=== PATIENT | male | born 1965 | race Caucasian/White ===

== ENCOUNTER → 2017-05-27 | Outpatient (CLI) | payer OTHER ==
[~2017-05-27] MED LIST: GLIM4 PO; METF500 PO; Percocet 5-3251 EACH PO
[2017-05-27 13:59] LABS: Protein, Urine Quantitative 495.8 mg/dL (0.0-11.9)
== END ==
LOC: LAB SHORT 12:20 → OLS 12:20
PROVIDERS: Internal Medicine
DX: N18.3 Chronic kidney disease, stage 3 (moderate) (principal)
CPT/HCPCS: 81050; 84156

== ENCOUNTER 2017-06-27 08:23 | Day surgery (SDC) | payer OTHER ==
[2017-06-27 15:12] LABS: Performing Lab SYMBIODX; Test Name KIDNEY BX
== END 2017-06-27 22:36 | disposition home or self-care (01) ==
LOC: CT 08:23
PROVIDERS: Internal Medicine; Radiology Diagnostic Radiology
PROC: 0TB13ZX Excision of Left Kidney, Percutaneous Approach, Diagnostic (ICD-10-PCS; principal; 2017-06-27 10:00)
DX: I12.9 Hypertensive chronic kidney disease with stage 1 through stage 4 chronic kidney disease, or unspecified chronic kidney disease (principal); E11.22 Type 2 diabetes mellitus with diabetic chronic kidney disease; E11.21 Type 2 diabetes mellitus with diabetic nephropathy; N18.3 Chronic kidney disease, stage 3 (moderate); E11.40 Type 2 diabetes mellitus with diabetic neuropathy, unspecified; Z87.891 Personal history of nicotine dependence; D64.9 Anemia, unspecified
CPT/HCPCS: 50200; 77012; 88329

== ENCOUNTER 2018-05-17 06:02 | Day surgery (SDC) | payer OTHER ==
[~2018-05-17] VITALS: Ht 182.9 cm; Wt 95.0 kg
[~2018-05-17 06:02] MED LIST changes: +AMLO10 PO; +ATOR20 PO; +CHLORTABS4 MG PO; +CHOL10002 PO; +FURO20 PO; +Ferrous Sulfat325 M2 PO; +HYDCHL25 PO; +HYDR10 PO; +Omeprazole20 M1 PO; +TRULICITY0.75 MG/0. SC; +VELTASSA8.4 GM PO
--- NOTE | 2018-05-17 08:16 | NUR ---
AT 0800 PT ARRIVED BACK TO RECOVERY ROOM IN RECLINER. PT DENIES PAIN. LEFT IJ PERMACATH SITE SOFT NON-TENDER WITH NO HEMATOMA AND NO BLEEDING WITH INTACT DRAINSPONGE DRESSING OVER SITE. PT EATING BREAKFAST AND TALKING WITH , CALL LIGHT IN REACH.
--- NOTE | 2018-05-17 08:51 | NUR ---
DISCHARGE INSTURCTIONS REVIEWED ALL QUESTIONS ANSWERED. 22 G IV DISCONTINUED FROM LEFT HAND WITH INTACT CANNULA. PT DISCHARGED AT 0850.
== END 2018-05-17 08:50 | disposition home or self-care (01) ==
LOC: MHTC 06:02
DX: I12.0 Hypertensive chronic kidney disease with stage 5 chronic kidney disease or end stage renal disease (principal); E11.22 Type 2 diabetes mellitus with diabetic chronic kidney disease; N18.6 End stage renal disease; E78.5 Hyperlipidemia, unspecified; Z87.891 Personal history of nicotine dependence; Z79.899 Other long term (current) drug therapy; Z79.84 Long term (current) use of oral hypoglycemic drugs
CPT/HCPCS: 36558; 99152; C1750; J1644; J2250; J3010; J7030; J7040

== ENCOUNTER 2018-11-16 09:44 | Day surgery (SDC) | payer MEDICARE, OTHER ==
[~2018-11-16] VITALS: Ht 182.9 cm; Wt 94.3 kg
[~2018-11-16 09:44] MED LIST changes: +Amlodipine Besy10 MG PO; +Calcium Acetat667 MG PO; +FURO40 PO; +LOSA50 PO; +METO25ER PO
--- NOTE | 2018-11-16 11:20 | NUR ---
11/16/18 1120 Aracelis Serrano S 3 ANTIBIOTICS ORDERED FOR PT. FOR HIS COLONOSCOPY. PT. RECEIVED AMPICILLIN & GENTAMYCIN BEFORE PROCEDURE. PER DR. DIAMOND OK TO RUN FLAGYL IN AFTER PROCEDURE SINCE TAKES AN HOUR TO RUN IN. DR. NOONAN AWARE. PT. WITH PERITONEAL CATH TO ABD. ALSO PT. HAS A FISTULA ON LEFT ARM. BP CUFF ON RIGHT LEG FOR PROCEDURE.
--- NOTE | 2018-11-16 12:07 | NUR ---
11/16/[address] STARTED FLAGYL 1206. DURING COLONOSCOPY.
--- NOTE | 2018-11-16 12:41 | NUR ---
11/16/18 1241 Lincoln Goel PT TRANSFERED WELL FROM BED TO CHAIR. PT AWAKE, ALERT AND ORIENTED. FAMILY AT BEDSIDE. PT WAS BROUGHT TO STEP DOWN UNIT TO FINISH GIVING ANTIBIOTIC FLAGYL. FLAGYL WAS STARTED DURING COLONOSCOPY PROCEDURE BY ANESTHESIOLOGIST. PT SITTING ON RECLINER, DRINKING COFFEE WAITING FOR ANTIBIOTIC TO FINISH. VS WNL. WILL CONTINUE TO MONITOR. PT DENIES ANY PAIN. PT HAS PERITONEAL CATHETER PRE-PROCEDURE. CATHETER STILL INTACT AND WNL.
== END 2018-11-16 12:52 | disposition home or self-care (01) ==
LOC: ORSCSDS 09:44
PROVIDERS: Student in an Organized Health Care Education/Training Program
PROC: 0DBM8ZX Excision of Descending Colon, Via Natural or Artificial Opening Endoscopic, Diagnostic (ICD-10-PCS; principal; 2018-11-16 11:00)
PROC: 0DBL8ZX Excision of Transverse Colon, Via Natural or Artificial Opening Endoscopic, Diagnostic (ICD-10-PCS; principal; 2018-11-16 11:00)
PROC: 0DBK8ZX Excision of Ascending Colon, Via Natural or Artificial Opening Endoscopic, Diagnostic (ICD-10-PCS; principal; 2018-11-16 11:00)
PROC: 0DBN8ZX Excision of Sigmoid Colon, Via Natural or Artificial Opening Endoscopic, Diagnostic (ICD-10-PCS; principal; 2018-11-16 11:00)
DX: Z12.11 Encounter for screening for malignant neoplasm of colon (principal); D12.2 Benign neoplasm of ascending colon; D12.3 Benign neoplasm of transverse colon; D12.4 Benign neoplasm of descending colon; D12.5 Benign neoplasm of sigmoid colon; K64.8 Other hemorrhoids; I25.10 Atherosclerotic heart disease of native coronary artery without angina pectoris; I12.0 Hypertensive chronic kidney disease with stage 5 chronic kidney disease or end stage renal disease; E11.22 Type 2 diabetes mellitus with diabetic chronic kidney disease; N18.6 End stage renal disease; E78.5 Hyperlipidemia, unspecified; Z87.891 Personal history of nicotine dependence; Z79.899 Other long term (current) drug therapy
CPT/HCPCS: 82947; 88305; J0290; J1580; J2704; J7030; J7120

== ENCOUNTER 2019-02-06 09:31 | Inpatient (IN) | payer MEDICARE, OTHER ==
[~2019-02-06] VITALS: Ht 182.9 cm; Wt 96.3 kg
[~2019-02-06 09:31] MED LIST changes: -ATOR20 PO; -Amlodipine Besy10 MG PO; -CHLORTABS4 MG PO; -CHOL10002 PO; -Calcium Acetat667 MG PO; -FURO40 PO; -HYDR10 PO; -LOSA50 PO; -METO25ER PO; -Omeprazole20 M1 PO; -TRULICITY0.75 MG/0. SC
[2019-02-06 10:22] LABS: BASOPHILS ABSOLUTE AUTO 0.03 K/mm3 (0.00-0.23); BASOPHILS PERCENT AUTO 0 % (0-2); EOSINOPHILS ABSOLUTE AUTO 0.37 K/mm3 (0.00-0.68); EOSINOPHILS PERCENT AUTO 4 % (0-6); Hematocrit 24.1 % (37.0-53.0); Hemoglobin 7.7 g/dL (13.5-17.5); IMMATURE GRAN ABSOLUTE AUTO 0.03 K/mm3 (0.00-0.10); IMMATURE GRAN PERCENT AUTO 0 % (0-1); LYMPHOCYTES ABSOLUTE AUTO 1.33 K/mm3 (0.84-5.20); LYMPHOCYTES PERCENT AUTO 16 % (21-46); MONOCYTES ABSOLUTE AUTO 0.74 K/mm3 (0.16-1.47); MONOCYTES PERCENT AUTO 9 % (4-13); Mean Corpuscular HGB 31.3 pg (26.0-34.0); Mean Corpuscular Volume 98 fL (80-100); Mean Platelet Volume 10.1 fL (9.1-12.4); NEUTROPHILS ABSOLUTE AUTO 5.95 K/mm3 (1.96-9.15); NEUTROPHILS PERCENT AUTO 70 % (41-73); Platelet Count 259 K/mm3 (150-400); RDW Coefficient Variation 14.5 % (11.7-14.2); RDW Standard Deviation 51.8 fL (35.1-46.3); Red Blood Cell Count 2.46 M/mm3 (4.30-5.90); White Blood Cell Count 8.45 K/mm3 (4.00-11.30)
[2019-02-06 10:42] LABS: Albumin, Blood 2.2 g/dL (3.4-5.0); Albumin/Globulin Ratio 0.6 (0.8-1.8); Bilirubin, Total 0.3 mg/dL (0.1-1.0); Calcium, Blood 7.1 mg/dL (8.5-10.1); Globulin, Blood 3.7 g/dL (2.2-4.0); Total Protein, Blood 5.9 g/dL (6.4-8.2)
[2019-02-06 10:45] LABS: Troponin I 0.056 ng/mL (0.000-0.040)
[2019-02-06 10:49] LABS: Bun/Creatinine Ratio 6.5 (12.0-20.0); Creatinine, Blood 13.6 mg/dL (0.60-1.20)
[2019-02-06 11:54] LABS: Phosphorus, Blood 8.7 mg/dL (2.5-4.9)
[2019-02-06 12:20] LABS: Creatine Kinase MB 21.1 ng/mL (0.0-3.6); Creatine Kinase MB Index 1.7 (0.0-4.0)
[2019-02-06] MEDS ORDERED: Omeprazole20 M1 PO (12:47)
[2019-02-06] MEDS ORDERED: METO25ER PO (12:47)
[2019-02-06] MEDS ORDERED: TRULICITY0.75 MG/0. SC (12:48)
[2019-02-06] MEDS ORDERED: PARO10 PO (12:48)
[2019-02-06] MEDS ORDERED: HYDR10 PO (12:49)
[2019-02-06] MEDS ORDERED: LOSA50 PO (12:49)
[2019-02-06] MEDS ORDERED: FURO40 PO (12:49)
[2019-02-06] MEDS ORDERED: Calcium Acetat667 MG PO (12:50)
[2019-02-06] MEDS ORDERED: GLIM4 PO (12:51)
[2019-02-06] MEDS ORDERED: CALCIUM ACETAT667 M2 PO (12:51)
[2019-02-06] MEDS ORDERED: Amlodipine Besy10 MG PO (12:52)
[2019-02-06] MEDS ORDERED: ATOR20 PO (12:52)
[2019-02-06] MEDS ORDERED: Aspir 8181 MG PO (12:54)
[2019-02-06] MEDS ORDERED: CALC.25 PO (12:58)
[2019-02-06] MEDS ORDERED: CHLORTABS4 MG PO (13:11)
[2019-02-06] MEDS ORDERED: VITAMIN D325 MCG PO (13:11)
--- NOTE | 2019-02-06 16:52 | NUR ---
PT ARRIVED TO THE MEDICAL FLOOR FROM THE ER TODAY ARROUND 1300, A/OX3, PLEASANT AND COOPERATIVE, PT IS UP WITHOUT ASSISTANCE, THE PT IS MILDLY SOB WITH ACTIVITY, THE PT DENIED ANY PAIN, OR N/V, THE PT WAS ORIENTED TO THE ROOM LAYOUT AND CALL SYSTEM, THE PT IS RECIEVING HD AT THIS TIME AND IS TOLERATING WELL, THE PT ANSWERED ALL QUESTIONS APPROPRIATLY, DR. PARDO WAS IN TO SEE THE PT , PT APPEARS TO BE BREATHING EASILY AT REST, CALL LIGHT IN REACH. WILL CONTINUE TO MONITOR AND ASSESS FOR CHANGES, THE PT RECIEVED 1 UNIT PRBC WITH DIALYSIS
[2019-02-06 18:09] LABS: Adenovirus Not Detected (NOT DETECT); Bordetella pertussis Not Detected (NOT DETECT); Chlamydophila pneumoniae Not Detected (NOT DETECT); Coronavirus 229E Not Detected (NOT DETECT); Coronavirus HKU1 Not Detected (NOT DETECT); Coronavirus NL63 Not Detected (NOT DETECT); Coronavirus OC43 Not Detected (NOT DETECT); Human Metapneumovirus Not Detected (NOT DETECT); Human Rhinovirus/Enterovirus Not Detected (NOT DETECT); Influenza A Not Detected (NOT DETECT); Influenza A/2009-H1 Not Detected (NOT DETECT); Influenza A/H1 Not Detected (NOT DETECT); Influenza A/H3 Not Detected (NOT DETECT); Influenza B Not Detected (NOT DETECT); Mycoplasma pneumoniae Not Detected (NOT DETECT); Parainfluenza Virus 1 Not Detected (NOT DETECT); Parainfluenza Virus 2 Not Detected (NOT DETECT); Parainfluenza Virus 3 Not Detected (NOT DETECT); Parainfluenza Virus 4 Not Detected (NOT DETECT); Respiratory Syncytial Virus Not Detected (NOT DETECT)
--- NOTE | 2019-02-07 02:53 | NUR ---
BP elevated, notified commission sales associate earlier, orders for antihypertension obtained. Recently administered med to pt for elevated BP. Will recheck BP in 1-2 hrs for follow up. Asymptomatic. Call light in reach.
[2019-02-07 05:14] LABS: Hematocrit 25.3 % (37.0-53.0); Hemoglobin 8.1 g/dL (13.5-17.5); Mean Corpuscular HGB 30.2 pg (26.0-34.0); Mean Platelet Volume 9.8 fL (9.1-12.4); Platelet Count 233 K/mm3 (150-400); RDW Coefficient Variation 15.6 % (11.7-14.2); RDW Standard Deviation 54.2 fL (35.1-46.3); Red Blood Cell Count 2.68 M/mm3 (4.30-5.90); White Blood Cell Count 7.78 K/mm3 (4.00-11.30)
[2019-02-07 05:21] LABS: Mean Corpuscular Volume 94 fL (80-100)
[2019-02-07 05:45] LABS: Albumin, Blood 2.2 g/dL (3.4-5.0); Anion Gap 12 mmol/L (6-16); Blood Urea Nitrogen 65 mg/dL (8-24); Bun/Creatinine Ratio 5.8 (12.0-20.0); CO2, Blood 24 mmol/L (21-32); Calcium, Blood 7.3 mg/dL (8.5-10.1); Chloride, Blood 107 mmol/L (98-108); Glomerular Filtration Rate 5 (60-); Glucose, Blood 97 mg/dL (70-99); Phosphorus, Blood 7.1 mg/dL (2.5-4.9); Potassium, Blood 4.2 mmol/L (3.5-5.5); Sodium, Blood 143 mmol/L (136-145)
--- NOTE | 2019-02-07 14:35 | NUR ---
Hypertension Clarified orders for Cozaar with Dr. Turner. Pt is to resume normal dose of Cozaar (50mg) instead of the (100mg) that was changed this afternoon.
--- NOTE | 2019-02-07 14:38 | NUR ---
NG tube Tube placed and confirmed by this RN through aspiration and bubble techniques. Portable chest x ray ordered for definitive confirmation.
--- NOTE | 2019-02-07 18:24 | NUR ---
Shift Summary A/Ox4, independent and pleasant to have. Pt received HD today, blood pressure remains elevated. Medicated for BP 174/102 with Hydralazine IV, pressure is now 167/93. Order placed for another sputum sample as the previous one sent was not valid. Will keep monitoring and pass to receiving RN.
--- NOTE | 2019-02-07 18:59 | NUR ---
DIALYSIS-PD TOOK SUPPLIES TO THE PHARMACY FOR HEPARIN TO BE INSTILLED IN PD SOLUTION. TOOK SUPPLIES AND MACHINE TO THE PT'S ROOM TO CONNECT. CONNECTED PER PROTOCAL AT 1845. PT A&O. HAS BEEN DOING PD FOR 8 MOS. INFORMED THE RN ABOUT THE PD, MY PHONE, AND ANY PROBLEM COULD ARISE.
[2019-02-08 05:31] LABS: Hematocrit 27.7 % (37.0-53.0); Hemoglobin 9.2 g/dL (13.5-17.5)
[2019-02-08 05:53] LABS: Magnesium, Blood 2.1 mg/dL (1.6-2.4)
[2019-02-08 06:04] LABS: Albumin, Blood 2.2 g/dL (3.4-5.0); Anion Gap 8 mmol/L (6-16); Blood Urea Nitrogen 48 mg/dL (8-24); Bun/Creatinine Ratio 5.2 (12.0-20.0); CO2, Blood 28 mmol/L (21-32); Calcium, Blood 8.4 mg/dL (8.5-10.1); Chloride, Blood 108 mmol/L (98-108); Creatinine, Blood 9.26 mg/dL (0.60-1.20); Glomerular Filtration Rate 6 (60-); Glucose, Blood 153 mg/dL (70-99); Phosphorus, Blood 5.5 mg/dL (2.5-4.9); Potassium, Blood 4.4 mmol/L (3.5-5.5); Sodium, Blood 144 mmol/L (136-145)
--- NOTE | 2019-02-08 07:59 | NUR ---
DIALYSIS-PD TOOK SUPPLIES TO PT'S ROOM. DC'ED TX PER PROTOCAL. PT STATED THAT THE TX WAS VERY COMFORTABLE FOR HIM. ID [id number], UF [id number]. PT PLANS ON TAKING A SHOWER THIS AM. LEFT HIM WITH SUPPLIES TO CLEAN AND DRESS HIS CATH SITE.
--- NOTE | 2019-02-08 08:04 | NUR ---
SHIFT SUMMARY: PATIENT IS A&OX4, NO REPORTS OF PAIN. PATIENT IS ABLE TO MAKE NEEDS KNOW. RECIEVED PARATONEALDIALYSIS DURING THE NIGHT, TOLERATED IR WELL. INDEPENDANT IN THE ROOM, VOIDING IN THE URINAL. NO COMPLAINTS OF PAIN OR DISCOMFORT. PATIENT HAS AN AV FISTUAL IN HIS L ARM POSITIVE FOR THRILL AND BUIT.
[2019-02-08] MEDS ORDERED: DOXY100 PO (10:17)
--- NOTE | 2019-02-08 11:45 | NUR ---
1145 PT D/C'D HOME VIA PERSONAL VEHICLE ACCOMPANIED AND DRIVEN BY SON. ESCORTED TO ENTRANCE VIA W/C BY MACHINE LAY OUT WORKER. IV REMOVED. D/C PAPERWORK REVIEWED WITH PT AND COPY PROVIDED. NEW RX FAXED TO [facility] PER PT REQUEST. NO NEW CHANGES OR CONCERNS.
== END 2019-02-08 11:44 | disposition home or self-care (01) | DRG 640 ==
LOC: ER 09:31 → MEDS 11:45 → ENPENDDIS 02-08 10:00 → MEDS 02-08 11:44
PROVIDERS: Emergency Medicine; Internal Medicine Nephrology; Nurse Practitioner Acute Care; ADMIT Internal Medicine
PROC: 5A1D70Z Performance of Urinary Filtration, Intermittent, Less than 6 Hours Per Day (ICD-10-PCS; principal; 2019-02-06)
PROC: 5A1D70Z Performance of Urinary Filtration, Intermittent, Less than 6 Hours Per Day (ICD-10-PCS; 2019-02-07)
PROC: 3E1M39Z Irrigation of Peritoneal Cavity using Dialysate, Percutaneous Approach (ICD-10-PCS; 2019-02-07)
DX: E87.70 Fluid overload, unspecified (principal); N18.6 End stage renal disease; I12.0 Hypertensive chronic kidney disease with stage 5 chronic kidney disease or end stage renal disease; N25.81 Secondary hyperparathyroidism of renal origin; J84.9 Interstitial pulmonary disease, unspecified; E11.22 Type 2 diabetes mellitus with diabetic chronic kidney disease; Z99.2 Dependence on renal dialysis; Z91.15 Patient's noncompliance with renal dialysis; D63.1 Anemia in chronic kidney disease; F41.9 Anxiety disorder, unspecified; F32.9 Major depressive disorder, single episode, unspecified; E87.2 Acidosis; E87.5 Hyperkalemia; E88.09 Other disorders of plasma-protein metabolism, not elsewhere classified; K21.9 Gastro-esophageal reflux disease without esophagitis; H54.61 Unqualified visual loss, right eye, normal vision left eye; F17.210 Nicotine dependence, cigarettes, uncomplicated; Z66 Do not resuscitate
CPT/HCPCS: 0099U; 36415; 36430; 71046; 71250; 80053; 80069; 82550; 82553; 82947; 83690; 83735; 83880; 84100; 84145; 84484; 85014; 85018; 85025; 85027; 86850; 86900; 86901; 86923; 93005; 93010; 93306; 96374; 96375; 99285-25; A9270; J0360; J0881; J1644; J1940; P9016

== ENCOUNTER 2019-03-17 20:35 | Emergency (ER) | payer MEDICARE, OTHER ==
[~2019-03-17] VITALS: Ht 185.4 cm; Wt 90.7 kg
[~2019-03-17 20:35] MED LIST changes: +ATOR20 PO; +Amlodipine Besy10 MG PO; +Aspir 8181 MG PO; +CALC.25 PO; +CALCIUM ACETAT667 M2 PO; +CHLORTABS4 MG PO; +Calcium Acetat667 MG PO; +DOXY100 PO; +FURO40 PO; +HYDR10 PO; +LOSA50 PO; +METO25ER PO; +Omeprazole20 M1 PO; +PARO10 PO; +TRULICITY0.75 MG/0. SC; +VITAMIN D325 MCG PO
[2019-03-17 21:36] LABS: BASOPHILS ABSOLUTE AUTO 0.02 K/mm3 (0.00-0.23); BASOPHILS PERCENT AUTO 0 % (0-2); EOSINOPHILS ABSOLUTE AUTO 0.15 K/mm3 (0.00-0.68); EOSINOPHILS PERCENT AUTO 2 % (0-6); Hematocrit 29.2 % (37.0-53.0); Hemoglobin 9.8 g/dL (13.5-17.5); IMMATURE GRAN ABSOLUTE AUTO 0.03 K/mm3 (0.00-0.10); IMMATURE GRAN PERCENT AUTO 0 % (0-1); LYMPHOCYTES ABSOLUTE AUTO 0.69 K/mm3 (0.84-5.20); LYMPHOCYTES PERCENT AUTO 10 % (21-46); MONOCYTES ABSOLUTE AUTO 0.48 K/mm3 (0.16-1.47); MONOCYTES PERCENT AUTO 7 % (4-13); Mean Corpuscular HGB 31.7 pg (26.0-34.0); Mean Corpuscular HGB Conc 33.6 g/dL (31.5-36.5); Mean Corpuscular Volume 95 fL (80-100); Mean Platelet Volume 10.1 fL (9.1-12.4); NEUTROPHILS ABSOLUTE AUTO 5.85 K/mm3 (1.96-9.15); NEUTROPHILS PERCENT AUTO 81 % (41-73); Platelet Count 260 K/mm3 (150-400); RDW Coefficient Variation 15.7 % (11.7-14.2); RDW Standard Deviation 54.2 fL (35.1-46.3); Red Blood Cell Count 3.09 M/mm3 (4.30-5.90); White Blood Cell Count 7.22 K/mm3 (4.00-11.30)
[2019-03-17 22:02] LABS: Magnesium, Blood 1.9 mg/dL (1.6-2.4); Phosphorus, Blood 6.3 mg/dL (2.5-4.9); Troponin I 0.015 ng/mL (0.000-0.040)
[2019-03-17 22:03] LABS: Albumin, Blood 2.4 g/dL (3.4-5.0); Albumin/Globulin Ratio 0.6 (0.8-1.8); Bilirubin, Total 0.3 mg/dL (0.1-1.0); Bun/Creatinine Ratio 5.5 (12.0-20.0); Calcium, Blood 8.8 mg/dL (8.5-10.1); Creatinine, Blood 9.5 mg/dL (0.60-1.20); Globulin, Blood 4.2 g/dL (2.2-4.0); Potassium, Blood 4.3 mmol/L (3.5-5.5); Total Protein, Blood 6.6 g/dL (6.4-8.2)
== END 2019-03-18 01:45 | disposition home or self-care (01) ==
LOC: ER 20:35
PROVIDERS: Physician Assistant
DX: I12.0 Hypertensive chronic kidney disease with stage 5 chronic kidney disease or end stage renal disease (principal); E11.22 Type 2 diabetes mellitus with diabetic chronic kidney disease; N18.6 End stage renal disease; K66.8 Other specified disorders of peritoneum; F32.9 Major depressive disorder, single episode, unspecified; F41.9 Anxiety disorder, unspecified; K21.9 Gastro-esophageal reflux disease without esophagitis; Z79.899 Other long term (current) drug therapy; Z79.84 Long term (current) use of oral hypoglycemic drugs; Z99.2 Dependence on renal dialysis; Z87.891 Personal history of nicotine dependence
CPT/HCPCS: 71046; 74176; 80053; 83735; 83880; 84100; 84484; 85025; 93005; 93010; 99284-25

== ENCOUNTER → 2019-03-23 | Outpatient (CLI) | payer OTHER, MEDICARE | END | disposition home or self-care (01) | LOC: OLS 08:00 → LAB SHORT 08:00 | DX: R10.9 Unspecified abdominal pain (principal); R19.7 Diarrhea, unspecified | CPT/HCPCS: 87493 ==

== ENCOUNTER 2019-04-21 12:20 | Emergency (ER) | payer MEDICARE, OTHER ==
[~2019-04-21] VITALS: Ht 182.9 cm; Wt 89.8 kg
[~2019-04-21 12:20] MED LIST changes: -Keflex500 MG PO
[2019-04-21] MEDS ORDERED: Keflex500 MG PO (12:54)
== END 2019-04-21 13:08 | disposition home or self-care (01) ==
LOC: ER 12:20
DX: T80.89XA Other complications following infusion, transfusion and therapeutic injection, initial encounter (principal); J90 Pleural effusion, not elsewhere classified; I12.0 Hypertensive chronic kidney disease with stage 5 chronic kidney disease or end stage renal disease; N18.6 End stage renal disease; E11.22 Type 2 diabetes mellitus with diabetic chronic kidney disease; F32.9 Major depressive disorder, single episode, unspecified; F41.9 Anxiety disorder, unspecified; K21.9 Gastro-esophageal reflux disease without esophagitis; Z87.891 Personal history of nicotine dependence; Z79.899 Other long term (current) drug therapy
CPT/HCPCS: 99282

== ENCOUNTER → 2019-04-21 | Outpatient (CLI) | payer MEDICARE, OTHER ==
[~2019-04-21] MED LIST changes: +Keflex500 MG PO
[2019-04-21 11:17] LABS: BASOPHILS ABSOLUTE AUTO 0.02 K/mm3 (0.00-0.23); BASOPHILS PERCENT AUTO 0 % (0-2); EOSINOPHILS ABSOLUTE AUTO 0.24 K/mm3 (0.00-0.68); EOSINOPHILS PERCENT AUTO 3 % (0-6); Hematocrit 25.9 % (37.0-53.0); Hemoglobin 8.7 g/dL (13.5-17.5); IMMATURE GRAN ABSOLUTE AUTO 0.02 K/mm3 (0.00-0.10); IMMATURE GRAN PERCENT AUTO 0 % (0-1); LYMPHOCYTES PERCENT AUTO 16 % (21-46); MONOCYTES ABSOLUTE AUTO 0.47 K/mm3 (0.16-1.47); MONOCYTES PERCENT AUTO 6 % (4-13); Mean Corpuscular HGB 32.3 pg (26.0-34.0); Mean Corpuscular HGB Conc 33.6 g/dL (31.5-36.5); Mean Platelet Volume 9.6 fL (9.1-12.4); NEUTROPHILS ABSOLUTE AUTO 5.57 K/mm3 (1.96-9.15); NEUTROPHILS PERCENT AUTO 74 % (41-73); Platelet Count 258 K/mm3 (150-400); RDW Coefficient Variation 15.9 % (11.7-14.2); RDW Standard Deviation 55.5 fL (35.1-46.3); Red Blood Cell Count 2.69 M/mm3 (4.30-5.90); White Blood Cell Count 7.52 K/mm3 (4.00-11.30)
[2019-04-21 11:20] LABS: Mean Corpuscular Volume 96 fL (80-100)
[2019-04-21 11:26] LABS: Albumin, Blood 2.3 g/dL (3.4-5.0); Albumin/Globulin Ratio 0.6 (0.8-1.8); Bilirubin, Total 0.3 mg/dL (0.1-1.0); Bun/Creatinine Ratio 4.8 (12.0-20.0); Calcium, Blood 7.9 mg/dL (8.5-10.1); Globulin, Blood 3.7 g/dL (2.2-4.0); Potassium, Blood 5.2 mmol/L (3.5-5.5)
[2019-04-21 11:34] LABS: Creatinine, Blood 13.17 mg/dL (0.60-1.20)
== END ==
LOC: LAB SHORT 11:10 → LAB EV 11:10
PROVIDERS: Physician Assistant
DX: N18.9 Chronic kidney disease, unspecified (principal)
CPT/HCPCS: 80053; 83880; 85025

== ENCOUNTER 2019-05-10 03:22 | Emergency (ER) | payer OTHER, MEDICARE ==
[~2019-05-10] VITALS: Ht 175.3 cm; Wt 90.7 kg
[~2019-05-10 03:22] MED LIST changes: +Keflex500 MG PO
[2019-05-10 03:50] LABS: BASOPHILS ABSOLUTE AUTO 0.04 K/mm3 (0.00-0.23); BASOPHILS PERCENT AUTO 1 % (0-2); EOSINOPHILS ABSOLUTE AUTO 0.29 K/mm3 (0.00-0.68); EOSINOPHILS PERCENT AUTO 4 % (0-6); Hematocrit 25.8 % (37.0-53.0); Hemoglobin 8.4 g/dL (13.5-17.5); IMMATURE GRAN ABSOLUTE AUTO 0.02 K/mm3 (0.00-0.10); IMMATURE GRAN PERCENT AUTO 0 % (0-1); LYMPHOCYTES ABSOLUTE AUTO 1.62 K/mm3 (0.84-5.20); LYMPHOCYTES PERCENT AUTO 21 % (21-46); MONOCYTES ABSOLUTE AUTO 0.74 K/mm3 (0.16-1.47); MONOCYTES PERCENT AUTO 9 % (4-13); Mean Corpuscular HGB 31.9 pg (26.0-34.0); Mean Corpuscular HGB Conc 32.6 g/dL (31.5-36.5); Mean Corpuscular Volume 98 fL (80-100); Mean Platelet Volume 9.7 fL (9.1-12.4); NEUTROPHILS ABSOLUTE AUTO 5.13 K/mm3 (1.96-9.15); NEUTROPHILS PERCENT AUTO 65 % (41-73); Platelet Count 254 K/mm3 (150-400); RDW Coefficient Variation 14.4 % (11.7-14.2); RDW Standard Deviation 51.5 fL (35.1-46.3); Red Blood Cell Count 2.63 M/mm3 (4.30-5.90); White Blood Cell Count 7.84 K/mm3 (4.00-11.30)
[2019-05-10 04:14] LABS: Troponin I <0.015 ng/mL (0.000-0.040)
[2019-05-10 04:16] LABS: Alanine Aminotransfer (ALT/SGP 33 U/L (12-78); Albumin, Blood 2.9 g/dL (3.4-5.0); Albumin/Globulin Ratio 0.8 (0.8-1.8); Alk Phos 79 U/L (50-136); Anion Gap 10 mmol/L (6-16); Aspartate Aminotrans (AST/SGOT 27 U/L (12-37); Bilirubin, Total 0.3 mg/dL (0.1-1.0); Blood Urea Nitrogen 49 mg/dL (8-24); CO2, Blood 29 mmol/L (21-32); Calcium, Blood 8.5 mg/dL (8.5-10.1); Chloride, Blood 102 mmol/L (98-108); Creatinine, Blood 8.16 mg/dL (0.60-1.20); Globulin, Blood 3.5 g/dL (2.2-4.0); Glomerular Filtration Rate 7 (60-); Glucose, Blood 96 mg/dL (70-99); Potassium, Blood 4.9 mmol/L (3.5-5.5); Sodium, Blood 141 mmol/L (136-145); Total Protein, Blood 6.4 g/dL (6.4-8.2)
== END 2019-05-10 05:50 | disposition home or self-care (01) ==
LOC: ER 03:22
PROVIDERS: Emergency Medicine
DX: R07.89 Other chest pain (principal); E87.70 Fluid overload, unspecified; I12.0 Hypertensive chronic kidney disease with stage 5 chronic kidney disease or end stage renal disease; E11.22 Type 2 diabetes mellitus with diabetic chronic kidney disease; N18.6 End stage renal disease; F41.9 Anxiety disorder, unspecified; F32.9 Major depressive disorder, single episode, unspecified; K21.9 Gastro-esophageal reflux disease without esophagitis; Z99.2 Dependence on renal dialysis; Z87.891 Personal history of nicotine dependence
CPT/HCPCS: 36415; 71045; 80053; 83880; 84484; 85025; 93005; 93010; 96374; 99284-25

== ENCOUNTER 2020-02-06 08:43 | Day surgery (SDC) | payer MEDICARE ==
[~2020-02-06] VITALS: Ht 185.4 cm; Wt 203.6 kg
[~2020-02-06 08:43] MED LIST changes: +Calcium Acetat667 MG; +LOKELMA; +LOKELMA PO; +OMEP20ER PO; +PARO20 PO; +TRULICITY0.75 MG/01 SC; +VITAMIN D325 MC3 PO
== END 2020-02-06 10:32 | disposition home or self-care (01) ==
LOC: ORSCSDS 08:43
PROVIDERS: Ophthalmology
PROC: 08RK3JZ Replacement of Left Lens with Synthetic Substitute, Percutaneous Approach (ICD-10-PCS; principal; 2020-02-06 10:00)
DX: H25.12 Age-related nuclear cataract, left eye (principal); I10 Essential (primary) hypertension; E11.9 Type 2 diabetes mellitus without complications; N18.6 End stage renal disease; Z87.891 Personal history of nicotine dependence; Z79.899 Other long term (current) drug therapy
CPT/HCPCS: 82947; J2001; J2250; J3010; J3301; J7040; V2632

== ENCOUNTER 2022-07-14 09:31 | Day surgery (SDC) | payer MEDICARE ==
[~2022-07-14] VITALS: Ht 185.4 cm; Wt 89.0 kg
[2022-07-14] VITALS (7 sets, daily range): BP systolic 134–170; BP diastolic 83–106
[2022-07-14] MEDS ORDERED: AMPDEX10 (10:04)
[2022-07-14] MEDS ORDERED: FERSU300 PO (10:05)
[2022-07-14] MEDS ORDERED: GLIP2.5ER PO (10:07)
[2022-07-14] MEDS ORDERED: GABA100 (10:07)
[2022-07-14] MEDS ORDERED: LORA2 PO (10:08)
[2022-07-14] MEDS ORDERED: PREDNISOLONE ACETATE (10:10)
--- NOTE | 2022-07-14 13:25 | NUR ---
PATIENT ARRIVED TO RECOVERY ROOM SITTING UPRIGHT IN BED, CONVERSING APPROPRIATELY. L ARM FISTULA SITES C/D/I, NO EVIDENCE OF BLEEDING. VSS ON ROOM AIR. INFORMED VIA TELEPHONE OF SUCCESSFUL PROCEDURE
--- NOTE | 2022-07-14 13:48 | NUR ---
PATIENT TOLERATING PO INTAKE WELL. L ARM FISTULAGRAM SITE C/D/I, NO EVIDENCE OF BLEEDING OR SWELLING. THRILL PRESENT. VSS ON ROOM AIR.
--- NOTE | 2022-07-14 14:34 | NUR ---
PATIENT RESTING IN BED. AWAKE AND ALERT. DRESSING SITES X 2 TO LEFT ARM FISTULA.
--- NOTE | 2022-07-14 15:05 | NUR ---
PATIENT UP AT BEDSIDE. DRESSED SELF
--- NOTE | 2022-07-14 15:20 | NUR ---
HILARIO HEARD HERE TO OBSERVE REMOVAL OF SUTURES FROM THE 2 SITES OVER THE FUISTULA. SUTURES REMOVED WITHOUT DIFFICULTY. THE MORE PROXIMAL SITE SKIN NOT CLOSED COMPLETELY. NO BLEEDING FROM SITE. SITE OBSERVED BY MAY RT. A CLOTH DOT DRESSING WAS APPLIED OVER BOTH SITES. NO BLEEDING, NO SWELLING.
--- NOTE | 2022-07-14 15:40 | NUR ---
PATIENT AND VERBALIZED UNDERSTANDING OF DISCHARGE INSTRUCTIONS AND PRECAUTIONS. IV SITE DCED WITH CATHETER INTACT. NO FURTHER QUESTIONS. PATIENT CHOSE TO AMBULATE WITH TO CAR.
== END 2022-07-14 15:46 | disposition home or self-care (01) ==
LOC: MHTC 09:31
DX: T82.858A Stenosis of other vascular prosthetic devices, implants and grafts, initial encounter (principal); Y83.8 Other surgical procedures as the cause of abnormal reaction of the patient, or of later complication, without mention of misadventure at the time of the procedure; I12.0 Hypertensive chronic kidney disease with stage 5 chronic kidney disease or end stage renal disease; E11.22 Type 2 diabetes mellitus with diabetic chronic kidney disease; N18.6 End stage renal disease; E78.5 Hyperlipidemia, unspecified; Z87.891 Personal history of nicotine dependence; Z79.899 Other long term (current) drug therapy
CPT/HCPCS: 76937; 99152; 99153; C1725; C1769; C1887; C1894; J1644; J2250; J3010; J7030; J7040; Q9967